=== PATIENT | female | born 1935 | race Caucasian/White ===

== ENCOUNTER 2021-07-31 07:00 | Inpatient (IN) | payer OTHER ==
[~2021-07-31] VITALS: Ht 165.1 cm; Wt 76.7 kg
[~2021-07-31 07:00] MED LIST: ACIDO FOLICO; CEFADROXIL500 MG PO; LOSARTAN-HCTZ1 EAC1; NEURONTIN300 MG; SILVADENE20 GM TOP
[2021-07-31] MEDS ORDERED: CALCIUM PO (08:32)
[2021-07-31] MEDS ORDERED: VITAMIN D310 MCG/1 M PO (08:33)
[2021-07-31] MEDS ORDERED: PRAVACOL PO (08:37)
[2021-07-31] MEDS ORDERED: CYM PO (08:49)
[2021-08-05] MEDS ORDERED: BRIMONIDINE TART5 ML (08:06)
[2021-08-05] MEDS ORDERED: DULOXETINE HCL30 MG (08:06)
[2021-08-05] MEDS ORDERED: FLONASE16 GM (08:07)
[2021-08-05] MEDS ORDERED: CALCIUM500 M1 (08:07)
[2021-08-05] MEDS ORDERED: DICLOFENAC POTA50 MG (08:07)
[2021-08-05] MEDS ORDERED: FAMOTIDINE40 MG (08:07)
[2021-08-05] MEDS ORDERED: LANSOPRAZOLE30 MG (08:07)
[2021-08-05] MEDS ORDERED: PRAVASTATIN SOD20 MG (08:07)
== END 2021-08-07 18:01 | DRG 470 ==
LOC: SURH 08-05 07:00 → O/R 08-05 07:58 → SURH 08-05 11:45 → SURG 08-06 16:10
PROVIDERS: ADMIT Orthopaedic Surgery; ATTEND Orthopaedic Surgery
PROC: 0SRC0J9 Replacement of Right Knee Joint with Synthetic Substitute, Cemented, Open Approach (ICD-10-PCS; principal; 2021-08-05 11:45)
DX: M17.11 Unilateral primary osteoarthritis, right knee (principal); D62 Acute posthemorrhagic anemia; M85.661 Other cyst of bone, right lower leg; M85.861 Other specified disorders of bone density and structure, right lower leg; I10 Essential (primary) hypertension

== ENCOUNTER 2021-09-03 16:40 | Emergency (ER) | payer OTHER ==
[~2021-09-03] VITALS: Ht 165.1 cm; Wt 81.2 kg
[~2021-09-03 16:40] MED LIST changes: +BRIMONIDINE TART5 ML; +CALCIUM PO; +CALCIUM500 M1; +CYM PO; +DICLOFENAC POTA50 MG; +DULOXETINE HCL30 MG; +FAMOTIDINE40 MG; +FLONASE16 GM; +LANSOPRAZOLE30 MG; +PRAVACOL PO; +PRAVASTATIN SOD20 MG; +VITAMIN D310 MCG/1 M PO
[2021-09-03] MEDS ORDERED: PEPCID AC20 MG PO (21:23)
[2021-09-03] MEDS ORDERED: LEVSIN/SL0.125 MG SL (21:23)
== END 2021-09-03 21:29 | disposition home or self-care (01) ==
LOC: ER 16:40
DX: K52.9 Noninfective gastroenteritis and colitis, unspecified (principal); I10 Essential (primary) hypertension

== ENCOUNTER 2024-11-26 11:01 | Emergency (ER) | payer OTHER ==
[~2024-11-26] VITALS: Ht 167.6 cm; Wt 81.2 kg
[~2024-11-26 11:01] MED LIST changes: +LEVSIN/SL0.125 MG SL; +PEPCID AC20 MG PO
[2024-11-26] MEDS ORDERED: ELIQUIS2.5 MG (11:38)
[2024-11-26] MEDS ORDERED: LEVALBUTEROL HCL 1.25 MG/3 ML SOLUTION IH ONE (12:30)
[2024-11-26] MEDS ORDERED: ONDANSETRON HCL 2 MG/ML VIAL IV ONE (12:30)
[2024-11-26] MEDS ORDERED: FAMOtidine 10 MG/ML (4ML VIAL) IV ONE (12:30)
[2024-11-26] MEDS ORDERED: 0.9 % SODIUM CHLORIDE 1,000 ML IV ONE (12:30)
[2024-11-26] MEDS ORDERED: BENZONATATE 200 MG CAPSULE PO ONE (12:30)
[2024-11-26] MEDS ORDERED: ONDANSETRON HCL 2 MG/ML VIAL ONE (12:51)
[2024-11-26] MEDS ORDERED: FAMOTIDINE/PF 20 MG/2 ML VIAL ONE (12:51)
[2024-11-26 13:22] LABS: BASO % 0.4 % (0.1-1.2); HEMATOCRIT 38.3 % (34.1-44.9); HEMOGLOBIN 13.3 g/dL (11.2-15.7); LYMPH # 0.63 (1.18-3.74); LYMPH % 12.8 % (19.3-53.1); MONO # 0.32 (0.24-0.82); MONO % 6.5 % (4.7-12.5); NEUT # 3.95 (1.56-6.13); NEUT % 80.1 % (34.0-71.1); PLATELET COUNT 146 K/uL (163-369); RED BLOOD COUNT 4.03 M/uL (3.93-5.22); RED CELL DISTRIBUTION WIDTH 15.4 % (11.6-14.4)
[2024-11-26 13:50] LABS: ALBUMIN 4.2 gm/dL (3.4-5.0); BILIRUBIN TOTAL 1.8 mg/dL (0.3-1.2); CALCIUM 9.2 mg/dL (8.5-10.1); CREATININE SERUM 1.06 mg/dL (0.55-1.02); GFR 49.04; GLOBULINA 3.4 G/DL (2.4-3.5); POTASSIUM 3.23 mEq/L (3.5-5.1); TOTAL PROTEIN 7.6 gm/dL (6.4-8.2)
[2024-11-26 13:52] LABS: INFLUENZA A AG POSITIVE (NEGATIVE); INFLUENZA B AG NEGATIVE (NEGATIVE)
[2024-11-26 13:53] LABS: COVID-19 AG NEGATIVE (NEGATIVE)
[2024-11-26 14:23] LABS: PH,URINE 5.5 (5.0-8.0); URINE APPEARANCE Clear; URINE BILIRRUBIN Negative (NEGATIVE); URINE BLOOD Large; URINE COLOR Dark Yellow; URINE GLUCOSE Negative (NEGATIVE); URINE KETONE Trace (NEGATIVE); URINE LEUKOCYTE Negative; URINE NITRATE Negative
[2024-11-26 14:27] LABS: URINE BACTERIA 80.7 uL (0.0-1933); URINE EPITHELIAL CELLS 14.2 uL (0.0-38.8); URINE RBC 82.9 uL (0.0-20.8)
[2024-11-26 14:44] LABS: URINE CAST 0.44 uL (0.0-1.40); URINE PROTEIN 100 (NEGATIVE)
[2024-11-26] MEDS ORDERED: BENZONATATE200 M1 PO (14:47)
[2024-11-26] MEDS ORDERED: PROTONIX40 MG PO (14:47)
[2024-11-26] MEDS ORDERED: OSEL75CA PO (14:47)
[2024-11-26] MEDS ORDERED: LEVALBUTER0.63 MG/3 IH (14:47)
== END 2024-11-26 16:59 | disposition home or self-care (01) ==
LOC: ER 11:15
PROVIDERS: General Practice
DX: J00 Acute nasopharyngitis [common cold] (principal); Z20.822 Contact with and (suspected) exposure to COVID-19; I10 Essential (primary) hypertension